=== PATIENT | male | born 1945 | race Caucasian/White ===

== ENCOUNTER 2019-09-30 11:07 | Emergency (ER) | payer MEDICARE ==
[~2019-09-30] VITALS: Ht 172.7 cm; Wt 99.8 kg
[2019-09-30 11:16] VITALS: BP 151/80
== END 2019-09-30 12:25 | disposition home or self-care (01) ==
LOC: ER 11:07
DX: T16.1XXA Foreign body in right ear, initial encounter (principal); H60.91 Unspecified otitis externa, right ear; E11.9 Type 2 diabetes mellitus without complications; Z98.890 Other specified postprocedural states; X58.XXXA Exposure to other specified factors, initial encounter; Y93.89 Activity, other specified; Y92.89 Other specified places as the place of occurrence of the external cause; Y99.8 Other external cause status

== ENCOUNTER 2021-12-26 02:14 | Inpatient (IN) | payer MEDICARE ==
[~2021-12-26] VITALS: Ht 172.7 cm; Wt 111.6 kg
[2021-12-26] MEDS ORDERED: METF-442 PO (04:08)
[2021-12-26] MEDS ORDERED: SEMA1PEN SQ (04:08)
[2021-12-26] MEDS ORDERED: INSU100V27 SQ (04:08)
[2021-12-26] MEDS ORDERED: TAMS-12 PO (04:08)
[2021-12-26] MEDS ORDERED: CETI-90 PO (04:08)
[2021-12-26] MEDS ORDERED: ALLO300T2 PO (04:08)
[2021-12-26] MEDS ORDERED: INSU3INS3 SQ (04:08)
[2021-12-26] MEDS ORDERED: METO50TA7 PO (04:08)
[2021-12-26] MEDS ORDERED: ALPR1TAB2 PO (04:08)
--- NOTE | 2021-12-26 04:12 | NUR ---
MS/TELE/RN RECEIVED PATIENT FROM [facility] VIA AMBULANCE, AT AROUND 0310. PATIENT IS AWAKE, ALERT, ORIENTED, COMFORTABLE, NO C/O PAIN AT THIS TIME, NO DISTRESS NOTED, MADE COMFORTABLE IN BED, TELE MONITOR APPLIED, GOWN CHANGED, VITAL SIGNS TAKEN. PHYSICAL ASSESSMENT DONE, ADMISSION DONE. TAUGHT THE USE OF CALL LIGHT, VERBALISED UNDERSTANDING AND PLACED IT AT BEDSIDE WITHIN REACH. FALL PRECAUTIONS PER PROTOCOL IMPLEMENTED. SENT MESSAGE TO VENANCIO MAE NP, FOR ADMISSION ORDERS. WILL MONITOR PATIENT FOR SAFETY.
[2021-12-26] MEDS ORDERED: ONDANSETRON HCL/PF 4 MG/2 ML VIAL IVP PRN (04:30)
[2021-12-26] MEDS ORDERED: DEXTROSE 50%-WATER 50 ML DISP.SYRIN IV PRN (04:30)
[2021-12-26] MEDS ORDERED: Z GUARD REMEDY 4 OZ OINT TP PRN (04:30)
[2021-12-26] MEDS ORDERED: IV 1/2NS 1000 ML 1,000 ML IV PRN (04:30)
[2021-12-26] MEDS ORDERED: ACETAMINOPHEN 325 MG TABLET PO PRN (04:30)
[2021-12-26] MEDS ORDERED: ALPRAZOLAM 0.25 MG TABLET PO PRN (04:30)
[2021-12-26] MEDS ORDERED: ZOSYN IVPB 3.375 G in IV D5W 50ml IV SCH (04:46)
[2021-12-26 04:57] VITALS: BP 119/66
[2021-12-26 05:06] LABS: BASOPHILS % (AUTO) 0.2 % (0.0-2.0); EOSINOPHILS % (AUTO) 0.6 % (0.0-6.0); HEMATOCRIT 33 % (39-51); HEMOGLOBIN 10.7 g/dL (13.5-17.5); LYMPHOCYTES # (AUTO) 0.9 K/uL (0.8-4.8); LYMPHOCYTES % (AUTO) 5.6 % (20.0-44.0); MEAN CORPUSCULAR HGB CONC 33 g/dl (31.0-36.0); MEAN CORPUSCULAR VOLUME 91 fL (80-96); MONOCYTES # (AUTO) 0.7 K/uL (0.1-1.30); MONOCYTES % (AUTO) 4.2 % (2.0-12.0); NEUTROPHILS # (AUTO) 14.3 K/uL (1.8-8.9); NEUTROPHILS % (AUTO) 89.4 % (43.0-81.0); PLATELET COUNT (AUTO) 196 K/uL (150-450); RED BLOOD CELL COUNT(AUTO) 3.59 MIL/uL (4.5-6.0); WHITE BLOOD COUNT (AUTO) 15.9 K/uL (4.3-11.0)
[2021-12-26] MEDS ORDERED: PIPERACILLIN /TAZOBACTAM 3.375 G VIAL IV ONE (05:33)
[2021-12-26 05:41] LABS: ALANINE AMINOTRANSFERASE 18 U/L (12-78); ALBUMIN 2.9 g/dL (3.4-5.0); ALKALINE PHOSPHATASE 58 U/L (46-116); ASPARTATE AMINOTRANSFERASE 15 U/L (15-37); BILIRUBIN,TOTAL 0.3 mg/dL (0.2-1.0); CALCIUM, SERUM 7.7 mg/dL (8.5-10.1); CARBON DIOXIDE 27 mmol/L (21-32); CHLORIDE 108 mmol/L (98-107); CREATININE 1.8 mg/dL (0.6-1.3); GLUCOSE 237 mg/dL (74-106); MAGNESIUM 1.6 mg/dL (1.8-2.4); POTASSIUM 4.9 mmol/L (3.5-5.1); SODIUM SERUM 142 mmol/L (136-145); TOTAL PROTEIN, SERUM 6.1 g/dL (6.4-8.2); UREA NITROGEN, BLOOD 30 mg/dL (7-18)
--- NOTE | 2021-12-26 06:22 | NUR ---
MS/TELE/RN PATIENT IS STILL SLEEPING AT THIS TIME, APPEAR COMFORTABLE, NO DISTRESS NOTED, CALL LIGHT IN REACH. ALL NEEDS ATTENDED AT THIS TIME, WILL CONTINUE TO MONITOR.
[2021-12-26 07:11] LABS: CHOLESTEROL 99 mg/dL (<200); HDL CHOLESTEROL 27 mg/dL (40-60); LDL 48 mg/dL (0-99); TRIGLYCERIDES 116 mg/dL (30-150)
--- NOTE | 2021-12-26 07:20 | NUR ---
SCARFING MACHINE OPERATOR OPENING NOTES RECEIVED PATIENT ON BED, ALERT AND ORIENTED X 3, BUT FORGETFUL. ABLE TO MAKE NEEDS KNOWN. ON OXYGEN AT 2LPM VIA NASAL CANULA, WITH EQUAL AND UNLABORED BREATHING, TOLERATING WELL. NO SOB NOTED. NO S/SX OF RESPIRATORY DISTRESS NOTED. IV ACCESS ON LEFT HAND WITH WITH 1/2 NS RUNNING AT 75 ML/HR, INFUSING WELL. PATIENT ON TELE MONITOR DETECTS SINUS RHYTHM. SAFETY PRECAUTIONS IN PLACE WITH BED IN LOWEST, LOCKED POSITION, SIDERAILS UPx2, TABLE AND CALL LIGHT WITHIN REACH. WILL CONTINUE TO MONITOR.
[2021-12-26] MEDS: INSULIN REGULAR, HUMAN 100 UNIT/ML 3 ML VIAL SQ PRN ×4 (07:25→21:32)
[2021-12-26] MEDS: BLOOD SUGAR DIAGNOSTIC 1 EACH STRIP IN SCH ×4 (07:28→21:27)
--- NOTE | 2021-12-26 08:30 | NUR ---
TABLET TESTER NOTE PATIENT SEEN BY DR. GAINES. WILL CONTINUE TO MONITOR PATIENT.
[2021-12-26] MEDS: PANTOPRAZOLE 40 MG TABLET.DR PO SCH (08:40)
[2021-12-26] MEDS: TAMSULOSIN 0.4 MG CAP.SR.24H PO SCH (08:40)
[2021-12-26] MEDS: METOPROLOL SUCCINATE 50 MG TAB.SR.24H PO SCH (08:41)
[2021-12-26] MEDS: cetrizine 10 MG TABLET PO SCH (08:41)
[2021-12-26] MEDS: ALLOPURINOL 100 MG TABLET PO SCH (08:41)
[2021-12-26] MEDS: HEPARIN SODIUM, PORCINE 5000 UNITS/1 ML VIAL SQ SCH ×2 (08:43→21:31)
[2021-12-26 09:17] VITALS: BP 122/71
[2021-12-26] MEDS: Magnesium 1GM/D5W 100ML PREMIX 100 ML IV SCH ×2 (09:32→10:39)
[2021-12-26] MEDS: MORPHINE SULFATE INJ 2 MG/ML DISP.SYRIN IV PRN ×3 (09:41→12:28)
[2021-12-26 10:36] LABS: IRON, SERUM 6 ug/dl (50-175); TOTAL IRON BINDING CAPACITY 217 ug/dl (250-450)
--- NOTE | 2021-12-26 11:09 | NUR ---
CASH ANALYST NOTE LEVI ASKED FOR PAIN MEDICATION TWICE BUT EVERYTIME I GO TO HIS ROOM WITH THE MEDICATION, I SEE THE PATIENT SLEEPING COMFORTABLY. PROVIDED WITH CALM AND QUIET ENVIRONMENT. WILL CONTINUE TO MONITOR PATIENT.
[2021-12-26] MEDS: PIPERACILLIN /TAZOBACTAM 3.375 G in IV D5W 100 ML IV SCH ×2 (11:30→17:52)
[2021-12-26 11:35] LABS: FERRITIN 184 ng/mL (8-388); THYROID STIMULATING HORMONE 0.649 uIU/mL (0.358-3.74)
[2021-12-26] MEDS: IV NS 0.9% 1,000 ML IV PRN (14:31)
[2021-12-26 16:30] VITALS: BP 123/67
[2021-12-26] MEDS: HYDROMORPHONE HCL 2 MG TABLET PO PRN (18:10)
--- NOTE | 2021-12-26 18:49 | NUR ---
VP ACCOUNT DIRECTOR CLOSING NOTES PATIENT ON BED, ALERT AND ORIENTED X 3, BUT FORGETFUL. ABLE TO MAKE NEEDS KNOWN. ON OXYGEN AT 2LPM VIA NASAL CANULA, WITH EQUAL AND UNLABORED BREATHING, TOLERATING WELL. NO SOB NOTED. NO S/SX OF RESPIRATORY DISTRESS NOTED. IV ACCESS ON LEFT HAND WITH WITH 1/2 NS RUNNING AT 100 ML/HR, INFUSING WELL. PATIENT ON TELE MONITOR DETECTS SINUS RHYTHM. SAFETY PRECAUTIONS IN PLACE WITH BED IN LOWEST, LOCKED POSITION, SIDERAILS UPx2, TABLE AND CALL LIGHT WITHIN REACH. WILL ENDORSE PATIENT FOR CONTINUITY OF CARE.
--- NOTE | 2021-12-26 19:47 | NUR ---
MS/TELE/RN PATIENT IS SLEEPING AT THIS TIME, APPEAR COMFORTABLE, BREATHING EVEN AND UNLABORED, NO SIGNS OF DISTRESS NOTED, IVF INFUSING, CALL LIGHT IN REACH, WILL MONITOR.
[2021-12-26 20:00] VITALS: BP 114/57
--- NOTE | 2021-12-26 21:59 | NUR ---
MS/TELE/RN AT 2100, PATIENT CHECKED HIS BLOOD SUGAR BY HIS CELLPHONE AND THE RESULT WAS 253, 6 UNITS OF REGULAR INSULIN PER SLIDING WAS GIVEN.
[2021-12-27] VITALS: BP 128/63
[2021-12-27] MEDS: PIPERACILLIN /TAZOBACTAM 3.375 G in IV D5W 100 ML IV SCH ×3 (01:47→18:17)
[2021-12-27] MEDS: IV NS 0.9% 1,000 ML IV PRN ×2 (01:57→11:47)
[2021-12-27] MEDS: HYDROMORPHONE HCL 2 MG TABLET PO PRN ×4 (03:09→21:05)
[2021-12-27 04:00] VITALS: BP 134/65
[2021-12-27] MEDS: BLOOD SUGAR DIAGNOSTIC 1 EACH STRIP IN SCH ×4 (06:30→21:18)
[2021-12-27] MEDS: INSULIN REGULAR, HUMAN 100 UNIT/ML 3 ML VIAL SQ PRN ×4 (06:31→21:17)
--- NOTE | 2021-12-27 06:36 | NUR ---
MS/TELE/RN PATIENT IS AWAKE, ALERT, ORIENTED, COMFORTABLE, NO DISTRESS NOTED, IVF INFUSING, CALL LIGHT IN REACH, ALL NEEDS ATTENDED AT THIS TIME, WILL CONTINUE TO MONITOR.
[2021-12-27 06:45] LABS: BASOPHILS % (AUTO) 0.4 % (0.0-2.0); HEMATOCRIT 33 % (39-51); HEMOGLOBIN 10.7 g/dL (13.5-17.5); LYMPHOCYTES # (AUTO) 1.6 K/uL (0.8-4.8); LYMPHOCYTES % (AUTO) 16.6 % (20.0-44.0); MEAN CORPUSCULAR HGB CONC 32 g/dl (31.0-36.0); MEAN CORPUSCULAR VOLUME 92 fL (80-96); MONOCYTES # (AUTO) 0.3 K/uL (0.1-1.30); MONOCYTES % (AUTO) 3.5 % (2.0-12.0); NEUTROPHILS # (AUTO) 7.2 K/uL (1.8-8.9); NEUTROPHILS % (AUTO) 74.5 % (43.0-81.0); PLATELET COUNT (AUTO) 174 K/uL (150-450); RED BLOOD CELL COUNT(AUTO) 3.58 MIL/uL (4.5-6.0); WHITE BLOOD COUNT (AUTO) 9.6 K/uL (4.3-11.0)
[2021-12-27 07:08] LABS: ALANINE AMINOTRANSFERASE 17 U/L (12-78); ALBUMIN 2.7 g/dL (3.4-5.0); ALKALINE PHOSPHATASE 52 U/L (46-116); ASPARTATE AMINOTRANSFERASE 25 U/L (15-37); BILIRUBIN,TOTAL 0.2 mg/dL (0.2-1.0); CALCIUM, SERUM 7.7 mg/dL (8.5-10.1); CARBON DIOXIDE 23 mmol/L (21-32); CHLORIDE 106 mmol/L (98-107); CREATININE 1.7 mg/dL (0.6-1.3); GLUCOSE 257 mg/dL (74-106); MAGNESIUM 2.3 mg/dL (1.8-2.4); PHOSPHORUS 2.9 mg/dL (2.5-4.9); POTASSIUM 4.8 mmol/L (3.5-5.1); SODIUM SERUM 141 mmol/L (136-145); TOTAL PROTEIN, SERUM 5.7 g/dL (6.4-8.2); UREA NITROGEN, BLOOD 30 mg/dL (7-18)
--- NOTE | 2021-12-27 07:21 | NUR ---
RN OPENING NOTE- HYDROGENATION OPERATOR OPENING NOTES PATIENT IN BED, ALERT AND ORIENTED, ABLE TO MAKE NEEDS KNOWN. ON OXYGEN AT 2LPM VIA NASAL CANULA, WITH NON-LABORED BREATHING, TOLERATING WELL. NO SOB NOTED. NO S/SX OF RESPIRATORY DISTRESS NOTED. IV ACCESS ON LEFT HAND WITH WITH 1/2 NS RUNNING AT 75 ML/HR, INFUSING WELL. SAFETY PRECAUTIONS IN PLACE WITH BED IN LOWEST, LOCKED POSITION, SIDERAILS UPx2, TABLE AND CALL LIGHT WITHIN REACH. WILL CONTINUE TO MONITOR/ ASSIST
[2021-12-27] MEDS: PANTOPRAZOLE 40 MG TABLET.DR PO SCH (07:47)
[2021-12-27 08:00] VITALS: BP 132/73
[2021-12-27] MEDS: cetrizine 10 MG TABLET PO SCH (09:02)
[2021-12-27] MEDS: TAMSULOSIN 0.4 MG CAP.SR.24H PO SCH (09:02)
[2021-12-27] MEDS: METOPROLOL SUCCINATE 50 MG TAB.SR.24H PO SCH (09:02)
[2021-12-27] MEDS: ALLOPURINOL 100 MG TABLET PO SCH (09:02)
[2021-12-27] MEDS: HEPARIN SODIUM, PORCINE 5000 UNITS/1 ML VIAL SQ SCH ×2 (09:03→21:15)
[2021-12-27 12:00] VITALS: BP 137/67
[2021-12-27] MEDS: SOD FERRIC GLUC 125 MG in IV NS 0.9% 100 ML IV SCH (13:21)
[2021-12-27 16:00] VITALS: BP 149/79
--- NOTE | 2021-12-27 19:16 | NUR ---
RN CLOSING NOTE-PATIENT IN BED, ALERT AND ORIENTED, ABLE TO MAKE NEEDS KNOWN. ON OXYGEN AT 2LPM VIA NASAL CANULA, WITH NON-LABORED BREATHING, TOLERATING WELL. NO SOB NOTED. NO S/SX OF RESPIRATORY DISTRESS NOTED. IV ACCESS ON LEFT HAND WITH WITH 1/2 NS RUNNING AT 75 ML/HR, INFUSING WELL. PAIN MANAGED W DILAUDID, MAY DC HOME TOMORROW. SAFETY PRECAUTIONS IN PLACE WITH BED IN LOWEST, LOCKED POSITION, SIDERAILS UPx2, TABLE AND CALL LIGHT WITHIN REACH. WILL CONTINUE TO MONITOR/ ASSIST
--- NOTE | 2021-12-27 19:35 | NUR ---
TRANSITION MGR OPENING NOTE PATIENT AWAKE IN BED, ALERT/ORIENTED X 2-3, PT ABLE TO MAKE NEEDS KNOWN. PT STABLE ON 2 LPM OF OXYGEN VIA NC, NO S/S OF DISTRESS OR SOB NOTED, BREATHING EVEN AND UNLABORED. PT ON EXTERNAL CHAIN PERSON READING SINUS ISRAEL, HR: 56. LEFT HAND IV ACCESS INTACT AND RUNNING ZOSYN @ 25 ML/HR. PATIENT IS AMBULATORY TO BATHROOM WITH SBA, STEADY GAIT. PATIENT REQUESTING XANAX, WILL GIVE MEDICATION ORDERED. SAFETY MEASURES IN PLACE: CALL LIGHT WITHIN REACH, SIDE RAILS UP X 2, BED LOCKED IN LOW POSITION, BED ALARM ON. WILL CONTINUE TO MONITOR PATIENT
[2021-12-27 20:00] VITALS: BP 127/55
--- NOTE | 2021-12-27 21:05 | NUR ---
FORGE SHOP MACHINE REPAIRER NOTE PATIENT REPORTING 9/10 BACK PAIN, REQUESTED PAIN MEDICATION. DILAUDID 8 MG PO GIVEN ORDERED. WILL CONTINUE TO MONITOR PATIENT
--- NOTE | 2021-12-27 21:20 | NUR ---
TOY CONSULTANT NOTE PATIENT HAS IMPLANT TO CHECK BLOOD SUGAR AND REQUESTED WE USE THAT, BLOOD SUGAR IS 255. 6 UNITS OF INSULIN GIVEN PER SLIDING SCALE
[2021-12-28] VITALS: BP 143/48
[2021-12-28] MEDS: PIPERACILLIN /TAZOBACTAM 3.375 G in IV D5W 100 ML IV SCH ×2 (02:28→09:16)
[2021-12-28] MEDS: IV NS 0.9% 1,000 ML IV PRN (02:28)
[2021-12-28] MEDS: HYDROMORPHONE HCL 2 MG TABLET PO PRN ×3 (03:08→15:18)
--- NOTE | 2021-12-28 03:10 | NUR ---
PULMONARY DISEASE SPECIALIST NOTE PATIENT REPORTING 9/10 BACK PAIN, REQUESTED PAIN MEDICATION. DILAUDID 8 MG PO GIVEN ORDERED. WILL CONTINUE TO MONITOR PATIENT
[2021-12-28 04:00] VITALS: BP 165/76
[2021-12-28 06:41] LABS: ALANINE AMINOTRANSFERASE 17 U/L (12-78); ALBUMIN 2.8 g/dL (3.4-5.0); ALKALINE PHOSPHATASE 50 U/L (46-116); ASPARTATE AMINOTRANSFERASE 15 U/L (15-37); BILIRUBIN,TOTAL 0.2 mg/dL (0.2-1.0); CALCIUM, SERUM 8.1 mg/dL (8.5-10.1); CARBON DIOXIDE 28 mmol/L (21-32); CHLORIDE 107 mmol/L (98-107); GLUCOSE 267 mg/dL (74-106); MAGNESIUM 2.1 mg/dL (1.8-2.4); POTASSIUM 4.3 mmol/L (3.5-5.1); SODIUM SERUM 139 mmol/L (136-145); TOTAL PROTEIN, SERUM 6.1 g/dL (6.4-8.2); UREA NITROGEN, BLOOD 27 mg/dL (7-18)
[2021-12-28 06:47] LABS: BASOPHILS % (AUTO) 0.5 % (0.0-2.0); EOSINOPHILS % (AUTO) 7.2 % (0.0-6.0); HEMATOCRIT 34 % (39-51); HEMOGLOBIN 10.9 g/dL (13.5-17.5); LYMPHOCYTES # (AUTO) 1.3 K/uL (0.8-4.8); LYMPHOCYTES % (AUTO) 17.6 % (20.0-44.0); MEAN CORPUSCULAR HGB CONC 33 g/dl (31.0-36.0); MEAN CORPUSCULAR VOLUME 91 fL (80-96); MONOCYTES # (AUTO) 0.3 K/uL (0.1-1.30); MONOCYTES % (AUTO) 4.5 % (2.0-12.0); NEUTROPHILS # (AUTO) 5.2 K/uL (1.8-8.9); NEUTROPHILS % (AUTO) 70.2 % (43.0-81.0); PLATELET COUNT (AUTO) 204 K/uL (150-450); RED BLOOD CELL COUNT(AUTO) 3.69 MIL/uL (4.5-6.0); WHITE BLOOD COUNT (AUTO) 7.4 K/uL (4.3-11.0)
[2021-12-28] MEDS: INSULIN REGULAR, HUMAN 100 UNIT/ML 3 ML VIAL SQ PRN ×2 (06:58→11:21)
[2021-12-28] MEDS: BLOOD SUGAR DIAGNOSTIC 1 EACH STRIP IN SCH ×2 (07:00→11:19)
--- NOTE | 2021-12-28 07:01 | NUR ---
ANESTHESIOLOGIST NOTE PATIENT HAS IMPLANT TO CHECK BLOOD SUGAR AND REQUESTED WE USE THAT, BLOOD SUGAR IS 142. 2 UNITS OF INSULIN GIVEN PER SLIDING SCALE
--- NOTE | 2021-12-28 07:05 | NUR ---
AIR HOIST OPERATOR CLOSING NOTE PATIENT AWAKE IN BED, ALERT/ORIENTED X 3, PT ABLE TO MAKE NEEDS KNOWN. PT STABLE ON 2 LPM OF OXYGEN VIA NC, NO S/S OF DISTRESS OR SOB NOTED, BREATHING EVEN AND UNLABORED. PT ON EXTERNAL SMALL EQUIPMENT OPERATOR READING SINUS RHYTHM, HR: 60. LEFT HAND IV ACCESS INTACT AND RUNNING NS @ 100 ML/HR. MEDICATIONS GIVEN ORDERED, PT NEEDS MET THROUGHOUT SHIFT. SAFETY MEASURES IN PLACE: CALL LIGHT WITHIN REACH, SIDE RAILS UP X 2, BED LOCKED IN LOW POSITION, BED ALARM ON. ENDORSED TO DAY SHIFT NURSE FOR CONTINUITY OF CARE
--- NOTE | 2021-12-28 07:36 | NUR ---
TOURS CAPTAIN OPENING NOTES RECEIVED PATIENT AWAKE AND WATCHING TV IN BED. HOB ELEVATED. A/O X3-4. ABLE TO MAKE NEEDS KNOWN, DENIES PAIN OR ANY DISCOMFORTS AT THIS TIME. PATIENT IS BREATHING EVENLY AND UNLABORED ON 2 LPM VIA NASAL CANNULA. IV ACCESS ON LEFT HAND #22 GAUGE PATENT AND INTACT WITH IVF OF NS AT 100ML/HR INFUSING WELL, NO S/S OF INFILTRATION AT SITE NOTED. ON TELE MONITORING WITH CURRENT READING OF SB , HR 54, NO C/O CARDIAC DISTRESS VOICED AT THIS TIME. SAFETY AND FALL MEASURES IN PLACE: BED IN LOWEST LOCKED POSITION, SIDE-RAILS UP X2 AND CALL LIGHT WITHIN REACH. WILL CONTINUE TO MONITOR PT ACCORDINGLY.
[2021-12-28 08:00] VITALS: BP 152/70
[2021-12-28] MEDS: ALLOPURINOL 100 MG TABLET PO SCH (08:17)
[2021-12-28] MEDS: PANTOPRAZOLE 40 MG TABLET.DR PO SCH (08:17)
[2021-12-28 08:19] VITALS: BP 154/70
[2021-12-28] MEDS: METOPROLOL SUCCINATE 50 MG TAB.SR.24H PO SCH (08:19)
[2021-12-28] MEDS: cetrizine 10 MG TABLET PO SCH (08:21)
[2021-12-28] MEDS: TAMSULOSIN 0.4 MG CAP.SR.24H PO SCH (08:21)
[2021-12-28] MEDS: HEPARIN SODIUM, PORCINE 5000 UNITS/1 ML VIAL SQ SCH (08:21)
--- NOTE | 2021-12-28 09:17 | NUR ---
RN NOTES PATIENT C/O CHRONIC BACK PAIN, 8/10 SCALE, PRN DILAUDID 8 MG PO GIVEN AT 0916. WILL CONTINUE TO MONITOR AND REASSESS PATIENT
--- NOTE | 2021-12-28 11:27 | NUR ---
OFFLINE EDITOR NOTE S PATIENT HAS IMPLANT TO CHECK BLOOD SUGAR UNDER RIGHT UPPER ARM AND REQUESTED WE USE IT, BLOOD SUGAR 197 MG/DL AC LUNCH. 3 UNITS OF REGULAR INSULIN GIVEN PER SLIDING SCALE.
[2021-12-28] MEDS: SOD FERRIC GLUC 125 MG in IV NS 0.9% 100 ML IV SCH (13:51)
--- NOTE | 2021-12-28 15:19 | NUR ---
RN NOTES PATIENT IN BED WITH COMPLAINED OF CHRONIC LOW BACK PAIN, 8/10 SCALE, PRN DILAUDID 8 MG PO GIVEN AT 1518. WILL CONTINUE TO MONITOR AND REASSESS PATIENT
--- NOTE | 2021-12-28 17:10 | NUR ---
RN DISCHARGED NOTES PT DISCHARGED HOME IN STABLE CONDITION. PT IS A/O X4. ABLE TO MAKE NEEDS KNOWN. AMBULATORY. V/S TAKEN, STABLE AND RECORDED. PHOTOGRAPHS OF SKIN ISSUES TAKEN AND FILED ON HIS CHART. BELONGINGS, CHECKED, COUNTED AND PT SIGNED BELONGINGS LIST FORM. IV ACCESS ON LEFT HAND REMOVED, NO ACTIVE BLEEDING NOTED, DRY PRESSURE DRESSING APPLIED AT SITE. NAME ARMBAND REMOVED. HEALTH TEACHINGS/ DISCHARGED INSTRUCTIONS GIVEN TO PT AND VERBALIZED UNDERSTANDING. PT PREFERS TO TAKE TAXI TO GO HOME, CALLED Call Loop FOR PT. PT LEFT UNIT AT 1700 VIA WHEELCHAIR ACCOMPANIED BY HARSHA MILLER. AND CHARGE NURSE AWARE OF DISCHARGE.
== END 2021-12-28 17:10 | disposition home or self-care (01) | DRG 88 ==
LOC: TELE 03:06
PROVIDERS: ADMIT Family Medicine; ATTEND Family Medicine
DX: S06.0X0A Concussion without loss of consciousness, initial encounter (principal); N17.0 Acute kidney failure with tubular necrosis; E44.0 Moderate protein-calorie malnutrition; E87.2 Acidosis; J98.11 Atelectasis; R55 Syncope and collapse; D72.829 Elevated white blood cell count, unspecified; E11.22 Type 2 diabetes mellitus with diabetic chronic kidney disease; E83.42 Hypomagnesemia; I12.9 Hypertensive chronic kidney disease with stage 1 through stage 4 chronic kidney disease, or unspecified chronic kidney disease; N18.9 Chronic kidney disease, unspecified; G89.4 Chronic pain syndrome; G47.33 Obstructive sleep apnea (adult) (pediatric); Y93.9 Activity, unspecified; E66.9 Obesity, unspecified; E88.09 Other disorders of plasma-protein metabolism, not elsewhere classified; F41.9 Anxiety disorder, unspecified; Z79.4 Long term (current) use of insulin; Z79.891 Long term (current) use of opiate analgesic; Z87.891 Personal history of nicotine dependence; M19.90 Unspecified osteoarthritis, unspecified site; Z68.37 Body mass index [BMI] 37.0-37.9, adult; Z71.3 Dietary counseling and surveillance; F19.10 Other psychoactive substance abuse, uncomplicated; E11.65 Type 2 diabetes mellitus with hyperglycemia; E78.5 Hyperlipidemia, unspecified; V43.52XA Car driver injured in collision with other type car in traffic accident, initial encounter; Y92.410 Unspecified street and highway as the place of occurrence of the external cause
CPT/HCPCS: 36415; 71045-TC; 76770-TC; 80053-TC; 80061-TC; 82728-TC; 82962-TC; 83540-TC; 83605-TC; 83735-TC; 84100-TC; 84439-TC; 84443-TC; 84484-TC; 85025-TC; 87081-TC; 93307-TC; 97116-TC; 97530-TC; G0378; J1644; J1815; J2270; J2543; J2916; J3475; J3490; J7030; J7060

== ENCOUNTER 2022-07-04 09:59 | Inpatient (IN) | payer MEDICARE ==
[~2022-07-04] VITALS: Ht 172.7 cm; Wt 107.0 kg
[~2022-07-04 09:59] MED LIST: ALLO300T2 PO; ALPR1TAB2 PO; CETI-90 PO; INSU100V27 SQ; INSU3INS3 SQ; METF-442 PO; METO50TA7 PO; SEMA1PEN SQ; TAMS-12 PO
--- NOTE | 2022-07-04 10:15 | NUR ---
CAME IN FOR CHEST DISCOMFORT "WOKE UP W SHARP PAIN" NON-RADIATING, 2/10 PS. PT IS A&OX4, BREATHING EVEN AND UNLABORED ON RA. PT CURRENTLY ENDORSES 0/10 PAIN.
[2022-07-04 10:48] LABS: BASOPHILS # (AUTO) 0.1 K/uL (0.0-0.2); BASOPHILS % (AUTO) 0.6 % (0.0-2.0); EOSINOPHILS % (AUTO) 4.2 % (0.0-6.0); HEMATOCRIT 43 % (39-51); HEMOGLOBIN 13.9 g/dL (13.5-17.5); LYMPHOCYTES # (AUTO) 1.5 K/uL (0.8-4.8); LYMPHOCYTES % (AUTO) 16.7 % (20.0-44.0); MEAN CORPUSCULAR HGB CONC 32 g/dl (31.0-36.0); MEAN CORPUSCULAR VOLUME 88 fL (80-96); MONOCYTES # (AUTO) 0.6 K/uL (0.1-1.30); MONOCYTES % (AUTO) 6.3 % (2.0-12.0); NEUTROPHILS # (AUTO) 6.4 K/uL (1.8-8.9); NEUTROPHILS % (AUTO) 72.2 % (43.0-81.0); PLATELET COUNT (AUTO) 205 K/uL (150-450); RED BLOOD CELL COUNT(AUTO) 4.87 MIL/uL (4.5-6.0); WHITE BLOOD COUNT (AUTO) 8.8 K/uL (4.3-11.0)
[2022-07-04 11:05] LABS: CALCIUM, SERUM 8.8 mg/dL (8.5-10.1); CARBON DIOXIDE 37 mmol/L (21-32); CHLORIDE 97 mmol/L (98-107); CREATININE 2.2 mg/dL (0.6-1.3); POTASSIUM 4.2 mmol/L (3.5-5.1); SODIUM SERUM 136 mmol/L (136-145); UREA NITROGEN, BLOOD 29 mg/dL (7-18)
[2022-07-04 11:09] LABS: GLUCOSE 416 mg/dL (74-106)
[2022-07-04] MEDS ORDERED: INSULIN REGULAR, HUMAN 100 UNIT/ML 10 ML VIAL IV ONE (11:30)
[2022-07-04] MEDS ORDERED: IV NS 0.9% 1,000 ML BAG IV ONE (11:30)
[2022-07-04] MEDS ORDERED: INSULIN REGULAR, HUMAN 100 UNIT/ML 10 ML VIAL ONE (11:32)
--- NOTE | 2022-07-04 12:20 | NUR ---
MOVE SHEET SUBMITTED.
--- NOTE | 2022-07-04 12:38 | NUR ---
[facility] CALLED RESEARCH CHEF PAGED.
--- NOTE | 2022-07-04 13:02 | NUR ---
SANJANA NUR COLLECTED. PLACED IN OUTGOING BIN.
[2022-07-04] MEDS ORDERED: TEST75GE10 TP (13:18)
[2022-07-04] MEDS ORDERED: ATOR40TA PO (13:18)
[2022-07-04] MEDS ORDERED: INSU200I4 SQ (13:18)
[2022-07-04] MEDS ORDERED: HYDR8TAB18 PO (13:18)
[2022-07-04] MEDS ORDERED: OLME1TAB92 PO (13:18)
[2022-07-04] MEDS ORDERED: OMEP40CA21 PO (13:18)
[2022-07-04] MEDS ORDERED: METO-357 PO (13:18)
--- NOTE | 2022-07-04 13:41 | NUR ---
Delonte palomino in [facility] - 07/04/22 at 1433 by HOMAR [place] [id number]-
[2022-07-04 14:50] VITALS: BP 165/77
--- NOTE | 2022-07-04 15:00 | NUR ---
COPY HOLDER OPENING NOTES RECEIVED PATIENT FROM ER ENDORSED BY LISA LANCASTER VIA [facility]. PATIENT IS AWAKE AND A/O X4. ON ON AND OFF O2 AT 2LPM VIA NASAL CANNULA TOLERATING WELL. NO SOB NOTED. NOT IN DISTRESS. WITH COMPLAINTS OF PAIN ON THE NECK AND BACK WITH A PAIN SCALE OF 6/10. AWAITING FOR DOCTOR TO RECONCILE HIS MEDICATION. ON TELE MONITOR CURRENTLY READING SINUS RHYTHM AT 90BPM. WITH IV ACCESS AT THE RIGHT AC G18 SALINE LOCKED, PATENT AND INTACT. SAFETY MEASURES IN PLACED. CALL LIGHT WITHIN REACH. BED ON LOWEST LOCKED POSITION, SIDE RAILS UP X2. WILL CONTINUE TO MONITOR. Addendum: 07/04/22 at 1858 by FORREST VIEYRA RN ERROR.
--- NOTE | 2022-07-04 15:07 | NUR ---
CALLED FOR REPORT, NURSE NOT AVAILABLE. WILL CALL BACK AFTER 10MIN
--- NOTE | 2022-07-04 15:36 | NUR ---
REPORT GIVEN TO EASTON GONZALEZ OF TELE UNIT
--- NOTE | 2022-07-04 15:50 | NUR ---
LIBRARY CIRCULATION ASSISTANTMANAGER PROGRAM NOTES RECEIVED PATIENT FROM ER ENDORSED BY LISA LANCASTER VIA [facility]. PATIENT IS AWAKE AND A/O X4. ON ON AND OFF O2 AT 2LPM VIA NASAL CANNULA TOLERATING WELL. NO SOB NOTED. NOT IN DISTRESS. WITH COMPLAINTS OF PAIN ON THE NECK AND BACK WITH A PAIN SCALE OF 6/10. AWAITING FOR DOCTOR TO RECONCILE HIS MEDICATION. ON TELE MONITOR CURRENTLY READING SINUS RHYTHM AT 90BPM. WITH INTACT SKIN. WITH IV ACCESS AT THE RIGHT AC G18 SALINE LOCKED, PATENT AND INTACT. SAFETY MEASURES IN PLACED. CALL LIGHT WITHIN REACH. BED ON LOWEST LOCKED POSITION, SIDE RAILS UP X2. WILL CONTINUE TO MONITOR.
[2022-07-04] MEDS ORDERED: *INSULIN REGULAR(HUMULIN R)HUM 100 UNIT/ML VIAL SQ PRN (16:00)
[2022-07-04] MEDS ORDERED: ACETAMINOPHEN 325 MG TABLET PO PRN (16:00)
[2022-07-04] MEDS ORDERED: MAGNESIUM HYDROXIDE 30 ML UDC PO PRN (16:00)
[2022-07-04] MEDS ORDERED: ONDANSETRON HCL/PF 4 MG/2 ML VIAL IVP PRN (16:00)
[2022-07-04] MEDS ORDERED: MORPHINE SULFATE INJ 2 MG/ML DISP.SYRIN IV PRN (16:00)
[2022-07-04] MEDS ORDERED: NITROGLYCERIN 0.4 MG/TAB BOTTLE MC PRN (16:00)
[2022-07-04] MEDS ORDERED: DEXTROSE 50%-WATER 50 ML DISP.SYRIN IV PRN (16:00)
[2022-07-04] MEDS ORDERED: ZOLPIDEM TARTRATE 5 MG TABLET PO PRN (16:00)
[2022-07-04] MEDS ORDERED: MAG HYDROX/AL HYDROX/SIMETH 30 ML UDC PO PRN (16:00)
[2022-07-04] MEDS ORDERED: Z GUARD REMEDY 4 OZ OINT TP PRN (16:00)
[2022-07-04 16:43] VITALS: BP 165/77
[2022-07-04] MEDS: METFORMIN 500 MG TABLET PO SCH (16:55)
[2022-07-04] MEDS: ALPRAZOLAM 1 MG TABLET PO SCH (16:55)
[2022-07-04] MEDS ORDERED: ENOXAPARIN SODIUM 30 MG/0.3 ML DISP.SYRIN SQ SCH (17:00)
[2022-07-04] MEDS: INSULIN REGULAR, HUMAN 100 UNIT/ML 3 ML VIAL SQ PRN ×2 (17:05→21:50)
[2022-07-04] MEDS: BLOOD SUGAR DIAGNOSTIC 1 EACH STRIP VI SCH ×2 (17:19→21:50)
--- NOTE | 2022-07-04 17:30 | NUR ---
RN NOTE PATIENT HAS HIS OWN GLUCOMETER ATTACHED AT THE RIGHT MEDIAL UPPER ARM. ACCUCHECK READING OF 212. REGULAR INSULIN 6U GIVEN PER SLIDING SCALE.
[2022-07-04] MEDS ORDERED: ATORVASTATIN 40 MG TABLET PO SCH (18:00)
[2022-07-04] MEDS ORDERED: HYDROMORPHONE HCL 2 MG TABLET PO SCH (18:00)
--- NOTE | 2022-07-04 18:56 | NUR ---
COUNTERINTELLIGENCE AGENT CLOSING NOTES PATIENT RESTING ON BED AND A/O X4. ON ON AND OFF O2 AT 2LPM VIA NASAL CANNULA TOLERATING WELL. NO SOB NOTED. NOT IN DISTRESS. WITH COMPLAINTS OF PAIN ON THE NECK AND BACK WITH A PAIN SCALE OF 6/10. ON TELE MONITOR CURRENTLY READING SINUS RHYTHM AT 82BPM. WITH IV ACCESS AT THE RIGHT AC G18 SALINE LOCKED, PATENT AND INTACT. DUE MEDS GIVEN. SAFETY MEASURES IN PLACED. CALL LIGHT WITHIN REACH. BED ON LOWEST LOCKED POSITION, SIDE RAILS UP X2. WILL ENDORSE TO NEXT SHIFT FOR VANESSA.
[2022-07-04 20:00] VITALS: BP 162/68
--- NOTE | 2022-07-04 20:02 | NUR ---
MEDICAL EDUCATOR OPENING NOTES; RECEIVED PATIENT IN BED SLEEPING BUT EASY TO AROUSED,A/O X4.ON O2 AT 2LPM VIA NASAL CANNULA TOLERATING WELL. NO SOB/DISTRESS NOTED.ON TELE MONITOR CURRENTLY READING SINUS RHYTHM AT 84BPM. WITH IV ACCESS AT THE RIGHT AC G18 SALINE LOCKED, PATENT AND INTACT.SAFETY MEASURES IN PLACED. CALL LIGHT WITHIN REACH. BED ON LOWEST LOCKED POSITION, SIDE RAILS UP X2. WILL CONTINUE TO MONITOR.
[2022-07-04] MEDS: HYDROMORPHONE HCL 2 MG TABLET PO SCH (21:21)
[2022-07-04] MEDS ORDERED: INSULIN GLARGINE, 100 UNIT/ML CARTRIDGE SQ SCH (22:00)
[2022-07-05] VITALS: BP 142/82
[2022-07-05] MEDS: HYDROMORPHONE HCL 2 MG TABLET PO SCH ×2 (03:00→08:55)
--- NOTE | 2022-07-05 03:00 | NUR ---
RN NOTES; DILAUDID 8MG WAS GIVEN.
[2022-07-05 05:00] VITALS: BP 138/93
--- NOTE | 2022-07-05 06:26 | NUR ---
SOMMELIER CLOSING NOTES; PATIENT IN BED AA/O X4.ON O2 AT 2LPM VIA NASAL CANNULA TOLERATING WELL. NO SOB/DISTRESS NOTED.ON TELE MONITOR CURRENTLY READING SINUS RHYTHM AT 87 BPM.DUE MEDS GIVEN ORDER.ALL NEEDS ATTENDED WITH IV ACCESS AT THE RIGHT AC G18 SALINE LOCKED, PATENT AND INTACT.SAFETY MEASURES IN PLACED. CALL LIGHT WITHIN REACH. BED ON LOWEST LOCKED POSITION, SIDE RAILS UP X2. WILL ENDORSED TO NEXT SHIFT.
[2022-07-05] MEDS: INSULIN REGULAR, HUMAN 100 UNIT/ML 3 ML VIAL SQ PRN (06:43)
[2022-07-05] MEDS: BLOOD SUGAR DIAGNOSTIC 1 EACH STRIP VI SCH (06:51)
[2022-07-05] MEDS ORDERED: PANTOPRAZOLE 40 MG TABLET.DR PO SCH (07:30)
--- NOTE | 2022-07-05 07:30 | NUR ---
BODY MAKER OPENING NOTES RECEIVED PATIENT AWAKE ON BED AND A/O X4. ON ROOM AIR TOLERATING WELL. NO SOB NOTED. NOT IN DISTRESS. WITH NO COMPLAINTS OF PAIN OR DISCOMFORT AT THIS TIME. ON TELE MONITOR CURRENTLY READING SINUS RHYTHM AT 63BPM. WITH IV ACCESS AT THE RIGHT AC G18 SALINE LOCKED, PATENT AND INTACT. SAFETY MEASURES IN PLACED. CALL LIGHT WITHIN REACH. BED ON LOWEST LOCKED POSITION, SIDE RAILS UP X2. WILL CONTINUE TO MONITOR.
[2022-07-05 07:31] LABS: BASOPHILS # (AUTO) 0.1 K/uL (0.0-0.2); BASOPHILS % (AUTO) 0.7 % (0.0-2.0); EOSINOPHILS % (AUTO) 6.4 % (0.0-6.0); HEMATOCRIT 42 % (39-51); HEMOGLOBIN 13.8 g/dL (13.5-17.5); LYMPHOCYTES # (AUTO) 1.7 K/uL (0.8-4.8); LYMPHOCYTES % (AUTO) 18.8 % (20.0-44.0); MEAN CORPUSCULAR HGB CONC 33 g/dl (31.0-36.0); MEAN CORPUSCULAR VOLUME 89 fL (80-96); MONOCYTES # (AUTO) 0.5 K/uL (0.1-1.30); MONOCYTES % (AUTO) 5.6 % (2.0-12.0); NEUTROPHILS # (AUTO) 6.1 K/uL (1.8-8.9); NEUTROPHILS % (AUTO) 68.5 % (43.0-81.0); PLATELET COUNT (AUTO) 200 K/uL (150-450); RED BLOOD CELL COUNT(AUTO) 4.76 MIL/uL (4.5-6.0); WHITE BLOOD COUNT (AUTO) 8.8 K/uL (4.3-11.0)
[2022-07-05 07:57] LABS: CALCIUM, SERUM 8.8 mg/dL (8.5-10.1); CARBON DIOXIDE 30 mmol/L (21-32); CHLORIDE 103 mmol/L (98-107); CREATININE 1.7 mg/dL (0.6-1.3); GLUCOSE 165 mg/dL (74-106); MAGNESIUM 1.9 mg/dL (1.8-2.4); PHOSPHORUS 3.9 mg/dL (2.5-4.9); POTASSIUM 4.3 mmol/L (3.5-5.1); SODIUM SERUM 140 mmol/L (136-145); UREA NITROGEN, BLOOD 25 mg/dL (7-18)
[2022-07-05] MEDS: ALPRAZOLAM 1 MG TABLET PO SCH (08:55)
[2022-07-05] MEDS: METFORMIN 500 MG TABLET PO SCH (08:55)
[2022-07-05 08:56] VITALS: BP 126/80
[2022-07-05] MEDS ORDERED: ALLOPURINOL 100 MG TABLET PO SCH (09:00)
[2022-07-05] MEDS ORDERED: METOPROLOL SUCCINATE 50 MG TAB.SR.24H PO SCH ×2 (09:00)
[2022-07-05] MEDS ORDERED: TAMSULOSIN 0.4 MG CAP.SR.24H PO SCH (09:00)
--- NOTE | 2022-07-05 11:38 | NUR ---
CANDY ATTENDANT NOTES PATIENT WAS SEEN BY DR. GILL AND ORDERED PATIENT FOR DISCHARGE TO HOME. DISCHARGE INSTRUCTION AND HOME MEDICATION INSTRUCTION PROVIDED TO THE PATIENT. PATIENT VERBALIZED UNDERSTANDING. IV LINE AND NAME WRIST BAND REMOVED. ACCOMPANIED PATIENT TO THE LOBBY VIA WHEELCHAIR AND LEFT VIA PRIVATE CAR IN STABLE CONDITION. MD AND CHARGE NURSE ARE AWARE OF THE DISCHARGE.
== END 2022-07-05 11:38 | disposition home or self-care (01) | DRG 205 ==
LOC: ER 10:01 → TRANSITION 13:11 → TELE1 15:28 → TELE 16:01
PROVIDERS: ADMIT Internal Medicine; ATTEND Internal Medicine
DX: M94.0 Chondrocostal junction syndrome [Tietze] (principal); N17.0 Acute kidney failure with tubular necrosis; E86.0 Dehydration; I12.9 Hypertensive chronic kidney disease with stage 1 through stage 4 chronic kidney disease, or unspecified chronic kidney disease; N18.9 Chronic kidney disease, unspecified; Z20.822 Contact with and (suspected) exposure to COVID-19; E11.22 Type 2 diabetes mellitus with diabetic chronic kidney disease; E78.5 Hyperlipidemia, unspecified; Z96.611 Presence of right artificial shoulder joint; Z79.4 Long term (current) use of insulin; Z79.84 Long term (current) use of oral hypoglycemic drugs; Z79.899 Other long term (current) drug therapy; F41.9 Anxiety disorder, unspecified; M10.9 Gout, unspecified; D64.9 Anemia, unspecified; E66.9 Obesity, unspecified; G89.29 Other chronic pain; Z79.891 Long term (current) use of opiate analgesic; Z87.891 Personal history of nicotine dependence; Z68.35 Body mass index [BMI] 35.0-35.9, adult
CPT/HCPCS: 36415; 71045-TC; 80048-TC; 83735-TC; 84100-TC; 84484-TC; 85025-TC; 87081-TC; 93307-TC; 94799-TC; G0378; J1650; J1815; J2270; J7030

== ENCOUNTER 2022-07-23 18:59 | Emergency (ER) | payer MEDICARE ==
[~2022-07-23] VITALS: Ht 172.7 cm; Wt 104.3 kg
[~2022-07-23 18:59] MED LIST changes: +ATOR40TA PO; -CETI-90 PO; +HYDR8TAB18 PO; +INSU200I4 SQ; -INSU3INS3 SQ; +OLME1TAB92 PO; +OMEP40CA21 PO; -SEMA1PEN SQ; +TEST75GE10 TP
--- NOTE | 2022-07-23 19:30 | NUR ---
BIBSELF C/O LEFT TESTICULAR PAIN AND LOWER LEFT ABD PAIN X 1 WEEK. PATIENT ALERT AND ORIENTED X3. AMBULATORY WITH NON LABORED BREATHING IN BED 08 ON MONITOR AND POX, AWAITING MD RESTREPO.
--- NOTE | 2022-07-23 19:40 | NUR ---
MD AT BEDSIDE FOR EVALUATION
--- NOTE | 2022-07-23 19:45 | NUR ---
BLOOD DRAWN AND SENT TO LAB
--- NOTE | 2022-07-23 19:45 | NUR ---
URINE COLLECTED AND SENTT O LAB
--- NOTE | 2022-07-23 19:45 | NUR ---
US AT BEDSIDE
--- NOTE | 2022-07-23 19:45 | NUR ---
EMT AT BEDSIDE FOR EKG
[2022-07-23] MEDS ORDERED: HYDROMORPHONE 1 MG/1 ML DISP.SYRIN IV ONE (20:00)
[2022-07-23] MEDS ORDERED: HYDROCODONE/APAP 10/325MG TABLET PO ONE (20:00)
[2022-07-23] MEDS ORDERED: PIPERACILLIN /TAZOBACTAM 3.375 G VIAL IV ONE (20:09)
[2022-07-23] MEDS ORDERED: HYDROCODONE/APAP 10/325MG TABLET ONE (20:10)
[2022-07-23] MEDS ORDERED: HYDROMORPHONE 1 MG/1 ML DISP.SYRIN ONE (20:10)
[2022-07-23 20:17] LABS: CALCIUM, SERUM 9.5 mg/dL (8.5-10.1); CARBON DIOXIDE 30 mmol/L (21-32); CHLORIDE 102 mmol/L (98-107); CREATININE 2.5 mg/dL (0.6-1.3); GLUCOSE 257 mg/dL (74-106); POTASSIUM 3.9 mmol/L (3.5-5.1); SODIUM SERUM 139 mmol/L (136-145); UREA NITROGEN, BLOOD 46 mg/dL (7-18)
[2022-07-23 20:18] LABS: BASOPHILS % (AUTO) 0.3 % (0.0-2.0); EOSINOPHILS % (AUTO) 3.6 % (0.0-6.0); HEMATOCRIT 46 % (39-51); HEMOGLOBIN 14.4 g/dL (13.5-17.5); LYMPHOCYTES # (AUTO) 2.5 K/uL (0.8-4.8); LYMPHOCYTES % (AUTO) 19.1 % (20.0-44.0); MEAN CORPUSCULAR HGB CONC 32 g/dl (31.0-36.0); MEAN CORPUSCULAR VOLUME 89 fL (80-96); MONOCYTES # (AUTO) 0.6 K/uL (0.1-1.30); MONOCYTES % (AUTO) 4.9 % (2.0-12.0); NEUTROPHILS # (AUTO) 9.3 K/uL (1.8-8.9); NEUTROPHILS % (AUTO) 72.1 % (43.0-81.0); RED BLOOD CELL COUNT(AUTO) 5.13 MIL/uL (4.5-6.0)
[2022-07-23 20:20] LABS: BILIRUBIN,URINE NEGATIVE (NEGATIVE); COLOR,URINE YELLOW (YELLOW); LEUKOCYTE ESTERASE ,URINE SMALL (NEGATIVE); NITRITE, URINE POSITIVE (NEGATIVE); PH,URINE 5.5 (5.0-8.0); PROTEIN,URINE NEGATIVE (NEGATIVE); UGLUCOSE >=1000 mg/dL (NEGATIVE); UROBILINOGEN,URINE 0.2 EU/dL (0.2)
[2022-07-23 20:24] LABS: ALANINE AMINOTRANSFERASE 15 U/L (12-78); ALBUMIN 3.7 g/dL (3.4-5.0); ALKALINE PHOSPHATASE 70 U/L (46-116); ASPARTATE AMINOTRANSFERASE 12 U/L (15-37); BILIRUBIN,DIRECT 0.1 mg/dL (0.0-0.2); BILIRUBIN,TOTAL 0.5 mg/dL (0.2-1.0); LIPASE 42 U/L (73-393); TOTAL PROTEIN, SERUM 8.1 g/dL (6.4-8.2)
[2022-07-23] MEDS ORDERED: PIPERACILLIN /TAZOBACTAM 3.375 G in IV D5W 50 ML IV ONE (20:30)
--- NOTE | 2022-07-23 20:50 | NUR ---
CALLED RADIOLOGY TO FOLLOW UP FOR CT
[2022-07-23] MEDS ORDERED: AMOX-430 PO (21:09)
[2022-07-23 21:12] LABS: PLATELET COUNT (AUTO) 251 K/uL (150-450)
[2022-07-23 21:16] LABS: BACTERIA,URINE 2+ /HPF (None Seen); RBC,URINE 0-2 /HPF (0-2); SQUAMOUS EPITHELIAL CELL,UR 0-2 /HPF (None Seen); WBC,URINE 21-50 /HPF (0-3)
[2022-07-23 21:41] VITALS: BP 138/88
--- NOTE | 2022-07-23 21:41 | NUR ---
Patient discharged to home in stable condition. Written and verbal after care instructions given. Patient verbalizes understanding of instruction.
== END 2022-07-23 21:42 | disposition home or self-care (01) ==
LOC: ER 19:01
DX: N45.2 Orchitis (principal); N45.1 Epididymitis; I10 Essential (primary) hypertension; E11.9 Type 2 diabetes mellitus without complications; G89.29 Other chronic pain; F41.9 Anxiety disorder, unspecified; E78.5 Hyperlipidemia, unspecified; Z87.39 Personal history of other diseases of the musculoskeletal system and connective tissue; Z79.899 Other long term (current) drug therapy
CPT/HCPCS: 99285; 96365; 96375; 93005; 76870; 85025; 80048; 87086; 83690; 80076; 81001; 36415; J2543; J7060; J1170

== ENCOUNTER 2024-01-27 16:10 | Inpatient (IN) | payer OTHER ==
[~2024-01-27] VITALS: Ht 172.7 cm; Wt 98.0 kg
[~2024-01-27 16:10] MED LIST changes: +AMOX-430 PO; +CEPH500C2 PO; +SULF1TAB48 PO
[2024-01-27] MEDS: IV NS 0.9% 1,000 ML BAG IV ONE (16:33)
[2024-01-27] MEDS ORDERED: TEST200V3 IM (16:48)
[2024-01-27 16:49] LABS: BASOPHILS # (AUTO) 0.1 K/uL (0.0-0.2); BASOPHILS % (AUTO) 0.5 % (0.0-2.0); EOSINOPHILS % (AUTO) 0.1 % (0.0-6.0); HEMATOCRIT 46 % (39-51); HEMOGLOBIN 14.4 g/dL (13.5-17.5); LYMPHOCYTES # (AUTO) 0.7 K/uL (0.8-4.8); LYMPHOCYTES % (AUTO) 3.6 % (20.0-44.0); MEAN CORPUSCULAR HEMOGLOBIN 30 PG (26.0-33.0); MEAN CORPUSCULAR HGB CONC 32 g/dl (31.0-36.0); MEAN CORPUSCULAR VOLUME 95 fL (80-96); MONOCYTES # (AUTO) 0.6 K/uL (0.1-1.30); NEUTROPHILS # (AUTO) 18.2 K/uL (1.8-8.9); NEUTROPHILS % (AUTO) 92.8 % (43.0-81.0); PLATELET COUNT (AUTO) 293 K/uL (150-450); RED CELL DISTRIBUTION WIDTH 15.9 % (11.5-15.0); WHITE BLOOD COUNT (AUTO) 19.6 K/uL (4.3-11.0)
[2024-01-27 17:12] LABS: ALANINE AMINOTRANSFERASE 23 U/L (12-78); ALBUMIN 2.2 g/dL (3.4-5.0); ALKALINE PHOSPHATASE 96 U/L (46-116); ASPARTATE AMINOTRANSFERASE 44 U/L (15-37); BILIRUBIN,DIRECT 0.3 mg/dL (0.0-0.2); BILIRUBIN,TOTAL 0.7 mg/dL (0.2-1.0); CARBON DIOXIDE 21 mmol/L (21-32); CHLORIDE 99 mmol/L (98-107); CREATININE 2.7 mg/dL (0.6-1.3); LIPASE 32 U/L (16-77); SODIUM SERUM 127 mmol/L (136-145); TOTAL PROTEIN, SERUM 6.8 g/dL (6.4-8.2); UREA NITROGEN, BLOOD 59 mg/dL (7-18)
[2024-01-27 17:13] LABS: GLUCOSE 619 mg/dL (74-106); POTASSIUM 6.9 mmol/L (3.5-5.1)
[2024-01-27] MEDS ORDERED: SODIUM BICARBONATE SYR 100 MEQ in IV D5W 1,000 ML IV ONE (17:30)
[2024-01-27] MEDS: ONDANSETRON HCL/PF 4 MG/2 ML VIAL IVP ONE (17:30)
[2024-01-27 17:55] LABS: APPEARANCE,URINE Clear (CLEAR); BILIRUBIN,URINE Negative (NEGATIVE); BLOOD, URINE Moderate Ery/uL (NEGATIVE); COLOR,URINE YELLOW (YELLOW); KETONES,URINE 15 mg/dL (NEGATIVE); LEUKOCYTE ESTERASE ,URINE Negative (NEGATIVE); NITRITE, URINE Negative (NEGATIVE); PH,URINE 5.5 (5.0-8.0); PROTEIN,URINE 30 mg/dl (NEGATIVE); UGLUCOSE >=1000 mg/dL (NEGATIVE); UROBILINOGEN,URINE 0.2 EU/dL (0.2)
[2024-01-27] MEDS ORDERED: CALCIUM CHLORIDE 1,000 MG/10 ML DISP.SYRIN ONE (18:00)
[2024-01-27] MEDS ORDERED: SODIUM POLYSTYRENE SULFONATE 15 G/60 ML BOTTLE ONE (18:00)
[2024-01-27] MEDS ORDERED: SODIUM BICARBONATE SYR 50 MEQ/50 ML DISP.SYRIN ONE (18:00)
[2024-01-27] MEDS ORDERED: FUROSEMIDE 20 MG/2 ML VIAL ONE (18:00)
[2024-01-27] MEDS ORDERED: INSULIN REGULAR, HUMAN 100 UNIT/ML 10 ML VIAL ONE (18:01)
[2024-01-27] MEDS: SODIUM BICARBONATE SYR 50 MEQ/50 ML DISP.SYRIN IV ONE ×2 (18:02→22:33)
[2024-01-27] MEDS: FUROSEMIDE 40 MG/4 ML VIAL IV ONE ×2 (18:02→22:28)
[2024-01-27] MEDS: CALCIUM CHLORIDE 1,000 MG/10 ML DISP.SYRIN IV ONE (18:02)
[2024-01-27] MEDS: SODIUM POLYSTYRENE SULFONATE 15 G/60 ML BOTTLE PO ONE ×2 (18:02→22:28)
[2024-01-27] MEDS: INSULIN REGULAR, HUMAN 100 UNIT/ML 10 ML VIAL SQ ONE (18:04)
[2024-01-27 18:12] LABS: ADD URINE CULTURE YES; BACTERIA,URINE Moderate /HPF (None Seen); SQUAMOUS EPITHELIAL CELL,UR Few /HPF (None Seen); WBC,URINE 0-2 /HPF (0-3)
[2024-01-27] MEDS: CEFEPIME 1 GM in IV D5W 50 ML IV ONE (18:18)
[2024-01-27] MEDS ORDERED: ONDANSETRON HCL/PF 4 MG/2 ML VIAL ONE (18:21)
[2024-01-27] MEDS: VANCOMYCIN 1 GM in IV D5W 250 ML IV ONE (18:30)
[2024-01-27] MEDS ORDERED: MAGNESIUM HYDROXIDE 30 ML UDC PO PRN (19:30)
[2024-01-27] MEDS ORDERED: ZOLPIDEM TARTRATE 5 MG TABLET PO PRN (19:30)
[2024-01-27] MEDS ORDERED: MAG HYDROX/AL HYDROX/SIMETH 30 ML UDC PO PRN (19:30)
[2024-01-27] MEDS ORDERED: Z GUARD REMEDY 4 OZ OINT TP PRN (19:30)
[2024-01-27] MEDS ORDERED: DEXTROSE 50%-WATER 50 ML DISP.SYRIN IV PRN (19:30)
[2024-01-27] MEDS: ALBUTEROL FS 2.5 MG/3 ML VIAL.NEB NEB ONE (19:33)
[2024-01-27 19:34] VITALS: O2SAT 93
[2024-01-27 19:49] VITALS: O2SAT 96
[2024-01-27 20:00] VITALS: BP 155/83; TEMP 97.9; O2SAT 93
[2024-01-27 20:46] LABS: CALCIUM, SERUM 8.4 mg/dL (8.5-10.1); CARBON DIOXIDE 27 mmol/L (21-32); CHLORIDE 103 mmol/L (98-107); SODIUM SERUM 136 mmol/L (136-145); UREA NITROGEN, BLOOD 58 mg/dL (7-18)
[2024-01-27 20:50] LABS: GLUCOSE 536 mg/dL (74-106); POTASSIUM 6.4 mmol/L (3.5-5.1)
[2024-01-27 20:56] LABS: MAGNESIUM 2.5 mg/dL (1.8-2.4)
[2024-01-27] MEDS: ZOSYN IVPB 2.25 G in IV D5W 50ml IV SCH (21:21)
[2024-01-27] MEDS: IV NS 0.9% 500 ML BAG IV ONE (21:49)
[2024-01-27] MEDS: INSULIN REGULAR, HUMAN 100 UNIT/ML 10 ML VIAL IV ONE (22:33)
[2024-01-28] VITALS (10 sets, daily range): BP systolic 125–143; BP diastolic 65–81; TEMP 97.5–98.5; O2SAT 92–98
[2024-01-28] MEDS: BLOOD SUGAR DIAGNOSTIC 1 EACH STRIP IN SCH
[2024-01-28 01:02] LABS: CALCIUM, SERUM 8.5 mg/dL (8.5-10.1); CARBON DIOXIDE 27 mmol/L (21-32); CHLORIDE 105 mmol/L (98-107); CREATININE 2.7 mg/dL (0.6-1.3); POTASSIUM 4.9 mmol/L (3.5-5.1); SODIUM SERUM 138 mmol/L (136-145); UREA NITROGEN, BLOOD 53 mg/dL (7-18)
[2024-01-28] MEDS: HEPARIN SODIUM, PORCINE 5000 UNITS/1 ML VIAL SQ SCH (01:08)
[2024-01-28 01:10] LABS: GLUCOSE 444 mg/dL (74-106)
[2024-01-28] MEDS: INSULIN REGULAR, HUMAN 100 UNIT/ML 3 ML VIAL SQ PRN (01:16)
[2024-01-28] MEDS: IV NS 0.9% 1,000 ML IV PRN ×2 (02:48→17:09)
[2024-01-28 06:57] LABS: BASOPHILS # (AUTO) 0.1 K/uL (0.0-0.2); BASOPHILS % (AUTO) 0.3 % (0.0-2.0); EOSINOPHILS # (AUTO) 0.1 K/uL (0.0-0.7); EOSINOPHILS % (AUTO) 0.3 % (0.0-6.0); HEMATOCRIT 43 % (39-51); HEMOGLOBIN 13.7 g/dL (13.5-17.5); LYMPHOCYTES % (AUTO) 5.3 % (20.0-44.0); MEAN CORPUSCULAR HEMOGLOBIN 30 PG (26.0-33.0); MEAN CORPUSCULAR HGB CONC 32 g/dl (31.0-36.0); MEAN CORPUSCULAR VOLUME 92 fL (80-96); MONOCYTES # (AUTO) 0.9 K/uL (0.1-1.30); MONOCYTES % (AUTO) 4.8 % (2.0-12.0); NEUTROPHILS # (AUTO) 17.2 K/uL (1.8-8.9); NEUTROPHILS % (AUTO) 89.3 % (43.0-81.0); PLATELET COUNT (AUTO) 289 K/uL (150-450); RED BLOOD CELL COUNT(AUTO) 4.61 MIL/uL (4.5-6.0); RED CELL DISTRIBUTION WIDTH 15.1 % (11.5-15.0); WHITE BLOOD COUNT (AUTO) 19.3 K/uL (4.3-11.0)
[2024-01-28 07:34] LABS: CHOLESTEROL 48 mg/dL (<200); HDL CHOLESTEROL 20 mg/dL (40-60); LDL 20 mg/dL (0-99); TRIGLYCERIDES 98 mg/dL (30-150)
[2024-01-28 07:40] LABS: CALCIUM, SERUM 8.2 mg/dL (8.5-10.1); CARBON DIOXIDE 26 mmol/L (21-32); CHLORIDE 104 mmol/L (98-107); CREATININE 2.3 mg/dL (0.6-1.3); GLUCOSE 193 mg/dL (74-106); PHOSPHORUS 2.7 mg/dL (2.5-4.9); POTASSIUM 3.7 mmol/L (3.5-5.1); SODIUM SERUM 138 mmol/L (136-145); UREA NITROGEN, BLOOD 46 mg/dL (7-18)
[2024-01-28] MEDS: TAMSULOSIN 0.4 MG CAP.SR.24H PO SCH (08:27)
[2024-01-28] MEDS: ALLOPURINOL 100 MG TABLET PO SCH (08:27)
[2024-01-28] MEDS: ALPRAZOLAM 1 MG TABLET PO SCH (08:27)
[2024-01-28] MEDS: HYDROCHLOROTHIAZIDE 25 MG TABLET PO SCH (08:28)
[2024-01-28] MEDS: LOSARTAN POTASSIUM 50 MG TABLET PO SCH (08:28)
[2024-01-28] MEDS ORDERED: Medication Not On Formulary EA (Olmesartan/Hydrochlorothiazide (Olmesartan-Hctz 40-25 mg PO SCH (09:00)
[2024-01-28] MEDS: IPRATROPIUM NEB FS 0.5 MG/2.5 ML AMPUL.NEB NEB SCH (10:00)
[2024-01-28] MEDS: HYDROMORPHONE HCL 2 MG TABLET PO PRN (12:52)
[2024-01-28] MEDS: ATORVASTATIN 40 MG TABLET PO SCH (17:07)
[2024-01-28] MEDS: ONDANSETRON HCL/PF 4 MG/2 ML VIAL IVP PRN (17:21)
[2024-01-28] MEDS ORDERED: LINEZOLID RTU BAG 600 MG in PREMIX 1 EA IV SCH (18:00)
[2024-01-28] MEDS: AZITHROMYCIN 500 MG in IV D5W 250 ML IV SCH (18:44)
[2024-01-28 19:25] LABS: CREATININE, URINE 58.2 MG/DL (30.0-125.0); URINE TOTAL PROTEIN 70.8 mg/dL (0-11.9)
[2024-01-28] MEDS: LINEZOLID RTU BAG 600 MG in PREMIX 1 EA IV SCH (20:23)
[2024-01-29] VITALS (14 sets, daily range): BP systolic 119–154; BP diastolic 67–85; TEMP 97.2–97.9; O2SAT 91–99
[2024-01-29 07:50] LABS: C-REACTIVE PROTEIN 11.55 mg/dL (0.0-0.30)
[2024-01-29 08:05] LABS: BASOPHILS % (AUTO) 0.2 % (0.0-2.0); EOSINOPHILS # (AUTO) 0.1 K/uL (0.0-0.7); EOSINOPHILS % (AUTO) 0.7 % (0.0-6.0); HEMATOCRIT 42 % (39-51); HEMOGLOBIN 13.6 g/dL (13.5-17.5); LYMPHOCYTES % (AUTO) 7.1 % (20.0-44.0); MEAN CORPUSCULAR HEMOGLOBIN 30 PG (26.0-33.0); MEAN CORPUSCULAR HGB CONC 33 g/dl (31.0-36.0); MEAN CORPUSCULAR VOLUME 93 fL (80-96); MONOCYTES # (AUTO) 0.4 K/uL (0.1-1.30); MONOCYTES % (AUTO) 2.8 % (2.0-12.0); NEUTROPHILS # (AUTO) 13.2 K/uL (1.8-8.9); NEUTROPHILS % (AUTO) 89.2 % (43.0-81.0); PLATELET COUNT (AUTO) 286 K/uL (150-450); RED CELL DISTRIBUTION WIDTH 15.7 % (11.5-15.0); WHITE BLOOD COUNT (AUTO) 14.8 K/uL (4.3-11.0)
[2024-01-29 08:23] LABS: CALCIUM, SERUM 7.9 mg/dL (8.5-10.1); CARBON DIOXIDE 27 mmol/L (21-32); CHLORIDE 103 mmol/L (98-107); CREATININE 1.9 mg/dL (0.6-1.3); GLUCOSE 266 mg/dL (74-106); MAGNESIUM 1.7 mg/dL (1.8-2.4); PHOSPHORUS 3.4 mg/dL (2.5-4.9); POTASSIUM 3.7 mmol/L (3.5-5.1); SODIUM SERUM 137 mmol/L (136-145); UREA NITROGEN, BLOOD 37 mg/dL (7-18)
[2024-01-29 08:42] LABS: LACTIC ACID 1.1 mmol/L (0.4-2.0)
[2024-01-29] MEDS: MAGNESIUM OXIDE 400 MG TABLET PO ONE (10:09)
[2024-01-29] MEDS: ALBUTEROL HALF STRENGTH 1.25 MG/3 ML VIAL.NEB NEB SCH (15:12)
[2024-01-29] MEDS: ZOSYN IVPB 3.375 G in IV D5W 50ml IV SCH (17:49)
[2024-01-29] MEDS: INSULIN GLARGINE, 100 UNIT/ML CARTRIDGE SQ SCH (22:58)
[2024-01-30] VITALS (15 sets, daily range): BP systolic 144–186; BP diastolic 69–88; TEMP 97.5–98.4; O2SAT 93–100
[2024-01-30 07:55] LABS: CHLORIDE 101 mmol/L (98-107); GLUCOSE 166 mg/dL (74-106); MAGNESIUM 1.8 mg/dL (1.8-2.4); PHOSPHORUS 3.7 mg/dL (2.5-4.9); POTASSIUM 3.7 mmol/L (3.5-5.1); SODIUM SERUM 136 mmol/L (136-145)
[2024-01-30 08:42] LABS: CALCIUM, SERUM 8.1 mg/dL (8.5-10.1); CARBON DIOXIDE 26 mmol/L (21-32); UREA NITROGEN, BLOOD 31 mg/dL (7-18)
[2024-01-30 11:14] LABS: BASOPHILS # (AUTO) 0.1 K/uL (0.0-0.2); BASOPHILS % (AUTO) 0.6 % (0.0-2.0); EOSINOPHILS # (AUTO) 0.2 K/uL (0.0-0.7); EOSINOPHILS % (AUTO) 1.5 % (0.0-6.0); HEMATOCRIT 44 % (39-51); HEMOGLOBIN 14.1 g/dL (13.5-17.5); LYMPHOCYTES # (AUTO) 1.4 K/uL (0.8-4.8); LYMPHOCYTES % (AUTO) 13.4 % (20.0-44.0); MEAN CORPUSCULAR HEMOGLOBIN 30 PG (26.0-33.0); MEAN CORPUSCULAR HGB CONC 32 g/dl (31.0-36.0); MEAN CORPUSCULAR VOLUME 94 fL (80-96); MONOCYTES # (AUTO) 0.4 K/uL (0.1-1.30); MONOCYTES % (AUTO) 3.8 % (2.0-12.0); NEUTROPHILS # (AUTO) 8.5 K/uL (1.8-8.9); NEUTROPHILS % (AUTO) 80.7 % (43.0-81.0); PLATELET COUNT (AUTO) 269 K/uL (150-450); RED BLOOD CELL COUNT(AUTO) 4.67 MIL/uL (4.5-6.0); RED CELL DISTRIBUTION WIDTH 15.5 % (11.5-15.0); WHITE BLOOD COUNT (AUTO) 10.6 K/uL (4.3-11.0)
[2024-01-30] MEDS ORDERED: SODIUM CL FOR INHALATION 3% 15 ML VIAL.NEB IH ONE (17:30)
[2024-01-31] VITALS (14 sets, daily range): BP systolic 132–179; BP diastolic 62–94; TEMP 97.7–98.4; O2SAT 93–100
[2024-01-31 13:24] LABS: ALANINE AMINOTRANSFERASE 75 U/L (12-78); ALBUMIN 1.9 g/dL (3.4-5.0); ALKALINE PHOSPHATASE 115 U/L (46-116); ASPARTATE AMINOTRANSFERASE 61 U/L (15-37); BILIRUBIN,TOTAL 0.4 mg/dL (0.2-1.0); CALCIUM, SERUM 8.5 mg/dL (8.5-10.1); CARBON DIOXIDE 26 mmol/L (21-32); CHLORIDE 102 mmol/L (98-107); CREATININE 2.1 mg/dL (0.6-1.3); GLUCOSE 311 mg/dL (74-106); MAGNESIUM 1.8 mg/dL (1.8-2.4); PHOSPHORUS 3.3 mg/dL (2.5-4.9); POTASSIUM 4.3 mmol/L (3.5-5.1); SODIUM SERUM 135 mmol/L (136-145); TOTAL PROTEIN, SERUM 6.9 g/dL (6.4-8.2); UREA NITROGEN, BLOOD 23 mg/dL (7-18)
[2024-01-31 13:43] LABS: BASOPHILS % (AUTO) 0.4 % (0.0-2.0); EOSINOPHILS # (AUTO) 0.1 K/uL (0.0-0.7); EOSINOPHILS % (AUTO) 1.1 % (0.0-6.0); HEMATOCRIT 45 % (39-51); HEMOGLOBIN 14.9 g/dL (13.5-17.5); LYMPHOCYTES # (AUTO) 1.1 K/uL (0.8-4.8); LYMPHOCYTES % (AUTO) 9.9 % (20.0-44.0); MEAN CORPUSCULAR HEMOGLOBIN 31 PG (26.0-33.0); MEAN CORPUSCULAR HGB CONC 33 g/dl (31.0-36.0); MEAN CORPUSCULAR VOLUME 92 fL (80-96); MONOCYTES # (AUTO) 0.3 K/uL (0.1-1.30); MONOCYTES % (AUTO) 3.1 % (2.0-12.0); NEUTROPHILS # (AUTO) 9.3 K/uL (1.8-8.9); NEUTROPHILS % (AUTO) 85.5 % (43.0-81.0); PLATELET COUNT (AUTO) 270 K/uL (150-450); RED BLOOD CELL COUNT(AUTO) 4.91 MIL/uL (4.5-6.0); RED CELL DISTRIBUTION WIDTH 15.6 % (11.5-15.0); WHITE BLOOD COUNT (AUTO) 10.8 K/uL (4.3-11.0)
[2024-02-01] VITALS (11 sets, daily range): BP systolic 146–171; BP diastolic 70–85; TEMP 97.5–98.4; O2SAT 93–100
[2024-02-01] MEDS: ACETAMINOPHEN 325 MG TABLET PO PRN (06:46)
[2024-02-01 07:25] LABS: BASOPHILS % (AUTO) 0.3 % (0.0-2.0); EOSINOPHILS # (AUTO) 0.2 K/uL (0.0-0.7); EOSINOPHILS % (AUTO) 1.6 % (0.0-6.0); HEMATOCRIT 48 % (39-51); HEMOGLOBIN 15.4 g/dL (13.5-17.5); LYMPHOCYTES % (AUTO) 8.3 % (20.0-44.0); MEAN CORPUSCULAR HEMOGLOBIN 30 PG (26.0-33.0); MEAN CORPUSCULAR HGB CONC 33 g/dl (31.0-36.0); MEAN CORPUSCULAR VOLUME 93 fL (80-96); MONOCYTES # (AUTO) 0.3 K/uL (0.1-1.30); MONOCYTES % (AUTO) 2.7 % (2.0-12.0); NEUTROPHILS % (AUTO) 87.1 % (43.0-81.0); PLATELET COUNT (AUTO) 273 K/uL (150-450); RED BLOOD CELL COUNT(AUTO) 5.11 MIL/uL (4.5-6.0); RED CELL DISTRIBUTION WIDTH 15.7 % (11.5-15.0); WHITE BLOOD COUNT (AUTO) 11.5 K/uL (4.3-11.0)
[2024-02-01 07:49] LABS: ALANINE AMINOTRANSFERASE 95 U/L (12-78); ALBUMIN 2.1 g/dL (3.4-5.0); ALKALINE PHOSPHATASE 113 U/L (46-116); ASPARTATE AMINOTRANSFERASE 91 U/L (15-37); BILIRUBIN,TOTAL 0.6 mg/dL (0.2-1.0); CALCIUM, SERUM 9.1 mg/dL (8.5-10.1); CARBON DIOXIDE 30 mmol/L (21-32); CHLORIDE 103 mmol/L (98-107); CREATININE 2.1 mg/dL (0.6-1.3); GLUCOSE 216 mg/dL (74-106); MAGNESIUM 1.6 mg/dL (1.8-2.4); PHOSPHORUS 3.3 mg/dL (2.5-4.9); POTASSIUM 4.7 mmol/L (3.5-5.1); SODIUM SERUM 139 mmol/L (136-145); TOTAL PROTEIN, SERUM 7.2 g/dL (6.4-8.2); UREA NITROGEN, BLOOD 22 mg/dL (7-18)
[2024-02-01] MEDS: MAGNESIUM OXIDE 400 MG TABLET PO ONE (11:34)
[2024-02-01] MEDS: PIPERACILLIN /TAZOBACTAM 3.375 G in IV D5W 100 ML IV SCH (12:03)
[2024-02-01] MEDS: LINEZOLID 600 MG TABLET PO SCH (16:50)
[2024-02-01] MEDS: AZITHROMYCIN 250 MG TABLET PO SCH (17:33)
[2024-02-02] VITALS (10 sets, daily range): BP systolic 124–165; BP diastolic 53–80; TEMP 97.5–99; O2SAT 94–100
[2024-02-02 07:22] LABS: BASOPHILS # (AUTO) 0.1 K/uL (0.0-0.2); BASOPHILS % (AUTO) 0.6 % (0.0-2.0); EOSINOPHILS # (AUTO) 0.2 K/uL (0.0-0.7); EOSINOPHILS % (AUTO) 2.3 % (0.0-6.0); HEMATOCRIT 48 % (39-51); HEMOGLOBIN 15.8 g/dL (13.5-17.5); LYMPHOCYTES # (AUTO) 1.2 K/uL (0.8-4.8); LYMPHOCYTES % (AUTO) 11.5 % (20.0-44.0); MEAN CORPUSCULAR HEMOGLOBIN 31 PG (26.0-33.0); MEAN CORPUSCULAR HGB CONC 33 g/dl (31.0-36.0); MEAN CORPUSCULAR VOLUME 93 fL (80-96); MONOCYTES # (AUTO) 0.3 K/uL (0.1-1.30); MONOCYTES % (AUTO) 2.8 % (2.0-12.0); NEUTROPHILS # (AUTO) 8.6 K/uL (1.8-8.9); NEUTROPHILS % (AUTO) 82.8 % (43.0-81.0); PLATELET COUNT (AUTO) 238 K/uL (150-450); RED BLOOD CELL COUNT(AUTO) 5.15 MIL/uL (4.5-6.0); WHITE BLOOD COUNT (AUTO) 10.4 K/uL (4.3-11.0)
[2024-02-02 07:28] LABS: CALCIUM, SERUM 8.5 mg/dL (8.5-10.1); CARBON DIOXIDE 27 mmol/L (21-32); CHLORIDE 103 mmol/L (98-107); CREATININE 2.1 mg/dL (0.6-1.3); GLUCOSE 240 mg/dL (74-106); MAGNESIUM 1.8 mg/dL (1.8-2.4); POTASSIUM 4.7 mmol/L (3.5-5.1); SODIUM SERUM 136 mmol/L (136-145); UREA NITROGEN, BLOOD 24 mg/dL (7-18)
[2024-02-02 08:51] LABS: EOSINOPHILS % (MANUAL) 2 % (0-4); LYMPHOCYTES % (MANUAL) 12 % (16-48); MONOCYTES % (MANUAL) 3 % (0-11.0); NEUTROPHILS % (MANUAL) 83 (42-76)
[2024-02-02 08:52] LABS: ANISOCYTOSIS 1+; PLATELET ESTIMATE INCREASED; TEAR DROP CELLS 1+
[2024-02-03] VITALS (10 sets, daily range): BP systolic 139–174; BP diastolic 63–78; TEMP 97.4–98; O2SAT 92–100
[2024-02-03 07:22] LABS: BASOPHILS % (AUTO) 0.6 % (0.0-2.0); EOSINOPHILS # (AUTO) 0.3 K/uL (0.0-0.7); EOSINOPHILS % (AUTO) 3.9 % (0.0-6.0); HEMATOCRIT 47 % (39-51); HEMOGLOBIN 15.3 g/dL (13.5-17.5); LYMPHOCYTES # (AUTO) 1.2 K/uL (0.8-4.8); LYMPHOCYTES % (AUTO) 15.4 % (20.0-44.0); MEAN CORPUSCULAR HEMOGLOBIN 30 PG (26.0-33.0); MEAN CORPUSCULAR HGB CONC 33 g/dl (31.0-36.0); MEAN CORPUSCULAR VOLUME 92 fL (80-96); MONOCYTES # (AUTO) 0.3 K/uL (0.1-1.30); MONOCYTES % (AUTO) 3.4 % (2.0-12.0); NEUTROPHILS # (AUTO) 6.1 K/uL (1.8-8.9); NEUTROPHILS % (AUTO) 76.7 % (43.0-81.0); PLATELET COUNT (AUTO) 239 K/uL (150-450); RED BLOOD CELL COUNT(AUTO) 5.06 MIL/uL (4.5-6.0); RED CELL DISTRIBUTION WIDTH 15.6 % (11.5-15.0)
[2024-02-03 07:29] LABS: CALCIUM, SERUM 8.3 mg/dL (8.5-10.1); CARBON DIOXIDE 27 mmol/L (21-32); CHLORIDE 103 mmol/L (98-107); GLUCOSE 169 mg/dL (74-106); MAGNESIUM 1.7 mg/dL (1.8-2.4); PHOSPHORUS 3.1 mg/dL (2.5-4.9); POTASSIUM 4.2 mmol/L (3.5-5.1); SODIUM SERUM 135 mmol/L (136-145); UREA NITROGEN, BLOOD 24 mg/dL (7-18)
[2024-02-03] MEDS: MAGNESIUM OXIDE 400 MG TABLET PO ONE (13:51)
[2024-02-04] VITALS (11 sets, daily range): BP systolic 138–171; BP diastolic 68–79; TEMP 96.3–99.1; O2SAT 91–99
[2024-02-04 07:47] LABS: BASOPHILS % (AUTO) 0.6 % (0.0-2.0); EOSINOPHILS # (AUTO) 0.3 K/uL (0.0-0.7); EOSINOPHILS % (AUTO) 3.6 % (0.0-6.0); HEMATOCRIT 49 % (39-51); HEMOGLOBIN 15.8 g/dL (13.5-17.5); MEAN CORPUSCULAR HEMOGLOBIN 30 PG (26.0-33.0); MEAN CORPUSCULAR HGB CONC 32 g/dl (31.0-36.0); MEAN CORPUSCULAR VOLUME 93 fL (80-96); MONOCYTES # (AUTO) 0.3 K/uL (0.1-1.30); NEUTROPHILS # (AUTO) 5.7 K/uL (1.8-8.9); NEUTROPHILS % (AUTO) 77.8 % (43.0-81.0); PLATELET COUNT (AUTO) 224 K/uL (150-450); RED BLOOD CELL COUNT(AUTO) 5.25 MIL/uL (4.5-6.0); RED CELL DISTRIBUTION WIDTH 15.4 % (11.5-15.0); WHITE BLOOD COUNT (AUTO) 7.3 K/uL (4.3-11.0)
[2024-02-04 08:06] LABS: CALCIUM, SERUM 8.4 mg/dL (8.5-10.1); CARBON DIOXIDE 21 mmol/L (21-32); CHLORIDE 101 mmol/L (98-107); GLUCOSE 264 mg/dL (74-106); MAGNESIUM 1.8 mg/dL (1.8-2.4); PHOSPHORUS 3.1 mg/dL (2.5-4.9); POTASSIUM 4.7 mmol/L (3.5-5.1); SODIUM SERUM 132 mmol/L (136-145); UREA NITROGEN, BLOOD 28 mg/dL (7-18)
[2024-02-05 04:00] VITALS: BP 133/92; TEMP 97.5; O2SAT 95
[2024-02-05 07:33] LABS: BASOPHILS % (AUTO) 0.6 % (0.0-2.0); EOSINOPHILS # (AUTO) 0.2 K/uL (0.0-0.7); EOSINOPHILS % (AUTO) 2.5 % (0.0-6.0); HEMATOCRIT 49 % (39-51); HEMOGLOBIN 15.7 g/dL (13.5-17.5); LYMPHOCYTES # (AUTO) 1.1 K/uL (0.8-4.8); LYMPHOCYTES % (AUTO) 14.5 % (20.0-44.0); MEAN CORPUSCULAR HEMOGLOBIN 30 PG (26.0-33.0); MEAN CORPUSCULAR HGB CONC 32 g/dl (31.0-36.0); MEAN CORPUSCULAR VOLUME 92 fL (80-96); MONOCYTES # (AUTO) 0.4 K/uL (0.1-1.30); MONOCYTES % (AUTO) 5.7 % (2.0-12.0); NEUTROPHILS % (AUTO) 76.7 % (43.0-81.0); PLATELET COUNT (AUTO) 246 K/uL (150-450); RED BLOOD CELL COUNT(AUTO) 5.27 MIL/uL (4.5-6.0); RED CELL DISTRIBUTION WIDTH 15.7 % (11.5-15.0); WHITE BLOOD COUNT (AUTO) 7.9 K/uL (4.3-11.0)
[2024-02-05 08:00] VITALS: BP 166/79; TEMP 97.9; O2SAT 99
[2024-02-05] MEDS ORDERED: ALBU1.25 NEB (08:02)
[2024-02-05] MEDS ORDERED: Blood Sugar Diagnostic IN (08:02)
[2024-02-05] MEDS ORDERED: Insulin Glargine,Hum SQ (08:02)
[2024-02-05] MEDS ORDERED: HYDR25TA4 PO (08:02)
[2024-02-05] MEDS ORDERED: IPRA0.2S9 NEB (08:02)
[2024-02-05] MEDS ORDERED: LOSA50TA39 PO (08:02)
[2024-02-05 08:04] LABS: CALCIUM, SERUM 8.9 mg/dL (8.5-10.1); CARBON DIOXIDE 24 mmol/L (21-32); CHLORIDE 104 mmol/L (98-107); CREATININE 2.2 mg/dL (0.6-1.3); GLUCOSE 184 mg/dL (74-106); MAGNESIUM 1.9 mg/dL (1.8-2.4); PHOSPHORUS 3.2 mg/dL (2.5-4.9); POTASSIUM 4.3 mmol/L (3.5-5.1); SODIUM SERUM 136 mmol/L (136-145); UREA NITROGEN, BLOOD 34 mg/dL (7-18)
[2024-02-05 08:56] VITALS: O2SAT 99
[2024-02-05 09:01] VITALS: BP 166/79
[2024-02-05] MEDS ORDERED: ALBU8.5H8 INH (11:57)
== END 2024-02-05 12:23 | disposition home health service (06) | DRG 177 ==
LOC: ER 16:12 → TELE-TD 18:28 → TELE1 01-30 13:40 → MEDSG1 01-31 17:02 → TELE1 02-01 00:30 → MEDSG1 02-04 16:15
PROVIDERS: ADMIT Nurse Practitioner Acute Care; ATTEND Nurse Practitioner Acute Care
PROC: 5A09357 Assistance with Respiratory Ventilation, Less than 24 Consecutive Hours, Continuous Positive Airway Pressure (ICD-10-PCS; principal; 2024-01-28)
DX: J69.0 Pneumonitis due to inhalation of food and vomit (principal); J96.01 Acute respiratory failure with hypoxia; N17.0 Acute kidney failure with tubular necrosis; K86.1 Other chronic pancreatitis; D68.59 Other primary thrombophilia; N12 Tubulo-interstitial nephritis, not specified as acute or chronic; I38 Endocarditis, valve unspecified; E11.65 Type 2 diabetes mellitus with hyperglycemia; N18.9 Chronic kidney disease, unspecified; Z91.199 Patient's noncompliance with other medical treatment and regimen due to unspecified reason; Z98.890 Other specified postprocedural states; Z79.4 Long term (current) use of insulin; Z79.899 Other long term (current) drug therapy; G89.29 Other chronic pain; F41.9 Anxiety disorder, unspecified; Z87.891 Personal history of nicotine dependence; N20.0 Calculus of kidney; E87.5 Hyperkalemia; E83.41 Hypermagnesemia; M89.8X9 Other specified disorders of bone, unspecified site; I13.10 Hypertensive heart and chronic kidney disease without heart failure, with stage 1 through stage 4 chronic kidney disease, or unspecified chronic kidney disease; E11.22 Type 2 diabetes mellitus with diabetic chronic kidney disease; G47.33 Obstructive sleep apnea (adult) (pediatric); E66.01 Morbid (severe) obesity due to excess calories; E86.0 Dehydration; J98.4 Other disorders of lung; K74.60 Unspecified cirrhosis of liver; Z68.32 Body mass index [BMI] 32.0-32.9, adult; J39.8 Other specified diseases of upper respiratory tract
CPT/HCPCS: 36415; 71045-TC; 71250-TC; 76770-TC; 80048-TC; 80053-TC; 80061-TC; 80076-TC; 81001; 82570-TC; 82962-TC; 83605-TC; 83690-TC; 83735-TC; 83880; 84100-TC; 84300-TC; 84484-TC; 85025-TC; 85652-TC; 86140-TC; 87040-TC; 87081-TC; 87086-TC; 92526; 92611-TC; 94760-TC; 94762-TC; 94799-TC; 97110-TC; 97116-TC; 97530-TC; A4216; A4218; A4223; G0378; J0456; J0692; J1644; J1815; J1940; J2020; J2405; J2543; J3370; J3490; J7030; J7040; J7050; J7060; J7070